=== PATIENT | female | born 1995 | race Caucasian/White ===

== ENCOUNTER 2020-08-22 12:18 | Outpatient (CLI) | payer OTHER ==
[2020-08-23 01:17] LABS: SARS-CoV-2 PCR by NAA Not Detected (NotDetected)
== END 2020-08-22 12:19 | disposition home or self-care (01) ==
LOC: CSHLAB 12:18
PROVIDERS: ATTEND Family Medicine
DX: Z20.822 Contact with and (suspected) exposure to COVID-19 (principal)
CPT/HCPCS: 87635; U0003; U0005

== ENCOUNTER 2020-08-25 05:30 | Inpatient (IN) | payer OTHER ==
[2020-08-25] MEDS ORDERED: Carboprost 250 MCG/ML AMP IM PRN (06:23)
[2020-08-25] MEDS ORDERED: Methylergonovine 0.2 MG/ML VIAL IM PRN (06:23)
[2020-08-25] MEDS ORDERED: Acetaminophen 500 MG TAB PO PRN (06:23)
[2020-08-25] MEDS ORDERED: Lactated Ringer's 1,000 ML IV SCH (06:23)
[2020-08-25] MEDS ORDERED: Butorphanol Tartrate 1 MG/ML VIAL SLOW IVP PRN (06:23)
[2020-08-25] MEDS ORDERED: Promethazine HCl 25 MG/ML VIAL IM PRN ×3 (06:23→17:59)
[2020-08-25] MEDS ORDERED: Ibuprofen 800 MG TAB PO PRN (06:23)
[2020-08-25] MEDS ORDERED: Misoprostol 200 MCG TAB PR PRN (06:23)
[2020-08-25] MEDS ORDERED: NS / Oxytocin 40 units/1000ml 1,000 ML IV PRN (06:23)
[2020-08-25] MEDS ORDERED: Ondansetron PF 4 MG/2 ML Vial IVP PRN ×3 (06:23→17:59)
[2020-08-25] MEDS ORDERED: hydrALAZINE 20 MG/ML VIAL SLOW IVP PRN ×2 (06:23→17:59)
[2020-08-25] MEDS ORDERED: Lidocaine 1% (PF) 30 ML VIAL SC PRN (06:23)
[2020-08-25] MEDS ORDERED: Diphenoxylate HCl/Atropine Tablet PO PRN (06:23)
[2020-08-25] MEDS ORDERED: NS w/ Oxytocin 30 units 500 ML ONE ×2 (07:15→14:48)
[2020-08-25 08:07] VITALS: BMI 31.7
[2020-08-25 08:19] LABS: Hemoglobin 11.9 g/dL (12.0-15.5); Mean Corpuscular HGB CONC 35.1 g/dL (32.0-36.0); Mean Corpuscular Hemoglobin 33.6 pg (27.0-33.0); Mean Corpuscular Volume 95.8 fl (81.6-98.3); Platelet Count 247 10x3/uL (150-450); RBC Distribution Width 13.3 % (11.5-14.5); Red Blood Cell (RBC) Count 3.54 10x6/uL (3.90-5.03); White Blood Cell (WBC) Count 15.6 10x3/uL (3.5-10.5)
[2020-08-25 08:39] LABS: Hep B Surf Ag Non-Reactive S/CO (NonReactive)
[2020-08-25 08:40] LABS: Syphilis Antibody Nonreactive (Nonreactive); Syphilis Antibody Index 0.03 S/CO (<1.00 Non-Reactive)
[2020-08-25 09:04] LABS: HBSAg Index 0.14 S/CO (0-0.99)
[2020-08-25] MEDS ORDERED: Fentanyl 4 mcg/Bup 0.1% Cadd 100 ML ONE (11:27)
[2020-08-25] MEDS ORDERED: Eucerin (Mineral Oil/Petrolatum,White) 30 gm Jar TOP PRN (12:01)
[2020-08-25] MEDS ORDERED: diphenhydrAMINE 50 MG/ML VIAL IVP PRN (12:01)
[2020-08-25] MEDS ORDERED: Lactated Ringer's 500 ML IV PRN (12:01)
[2020-08-25] MEDS ORDERED: Naloxone HCl 0.4 mg/ml Vial IVP PRN ×2 (12:01)
[2020-08-25] MEDS ORDERED: Acetaminophen 325 MG TAB PO PRN (12:01)
[2020-08-25] MEDS ORDERED: Communication Order-Pharmacy FS SCH (12:15)
[2020-08-25] MEDS ORDERED: Fentanyl 4 mcg/Bupivacaine 0.1% Cassette 100 ML EPIDURAL SCH (12:15)
[2020-08-25] MEDS ORDERED: ePHEDrine Sulfate 50 MG/10 ML VIAL SLOW IVP PRN (12:25)
[2020-08-25 12:55] LABS: Amphetamine Not Detected (NotDetected); Barbiturates Screen Not Detected (NotDetected); Benzodiazepine Screen Not Detected (NotDetected); Cocaine Metabolite Screen Not Detected (NotDetected); Methadone Not Detected (NotDetected); Methamphetamine Not Detected (NotDetected); Opiate Screen Not Detected (NotDetected); Oxycodone Screen Not Detected (NotDetected); Phencyclidine (PCP) Not Detected (NotDetected); THC/Cannabinoid Screen Not Detected (NotDetected); Tricyclic Screen Not Detected (NotDetected)
[2020-08-25] MEDS ORDERED: Milk Of Magnesia 30 ML UDCUP PO PRN (17:59)
[2020-08-25] MEDS ORDERED: Adacel (T-DAP) 0.5 ML SYRINGE IM ONE (17:59)
[2020-08-25] MEDS ORDERED: Preparation H Ointment 28 GM TUBE PR PRN (17:59)
[2020-08-25] MEDS ORDERED: HYDROcodone/Acetaminophen 5/325 mg Tablet PO PRN ×2 (17:59)
[2020-08-25] MEDS ORDERED: Benzocaine-Menthol 82.5 ML CAN TOP PRN (17:59)
[2020-08-25] MEDS ORDERED: Bisacodyl 10 MG SUPP PR PRN (17:59)
[2020-08-25] MEDS ORDERED: diphenhydrAMINE 25 MG CAP PO PRN (17:59)
[2020-08-25] MEDS ORDERED: NS w/ Oxytocin 30 units 500 ML IV SCH (18:30)
[2020-08-25] MEDS ORDERED: Ferrous Sulfate 325 MG TAB PO SCH (18:30)
[2020-08-25] MEDS: Docusate Calcium (SURFAK) 240 MG CAP PO SCH (22:00)
[2020-08-25] MEDS: Ibuprofen 800 MG TAB PO SCH (22:28)
[2020-08-26] MEDS: Ibuprofen 800 MG TAB PO SCH ×2 (06:05→14:37)
[2020-08-26] MEDS ORDERED: Prenatal Vitamin 1 TAB PO SCH (09:00)
[2020-08-26] MEDS: Ferrous Sulfate 325 MG TAB PO SCH ×2 (09:13→15:32)
[2020-08-26] MEDS: Docusate Calcium (SURFAK) 240 MG CAP PO SCH (09:14)
[2020-08-27] MEDS: Docusate Calcium (SURFAK) 240 MG CAP PO SCH (06:32)
[2020-08-27] MEDS: Ibuprofen 800 MG TAB PO SCH ×2 (06:32→06:33)
[2020-08-27 10:04] VITALS: BP 127/78; TEMP 98.1
== END 2020-08-27 10:15 | disposition home or self-care (01) | DRG 807 ==
LOC: CSHLD 06:11 → CSHPED 20:10
PROVIDERS: ADMIT Family Medicine; ATTEND Family Medicine
PROC: 10E0XZZ Delivery of Products of Conception, External Approach (ICD-10-PCS; principal; 2020-08-25)
PROC: 10907ZC Drainage of Amniotic Fluid, Therapeutic from Products of Conception, Via Natural or Artificial Opening (ICD-10-PCS; 2020-08-25)
PROC: 3E033VJ Introduction of Other Hormone into Peripheral Vein, Percutaneous Approach (ICD-10-PCS; 2020-08-25)
DX: O99.324 Drug use complicating childbirth (principal); Z37.0 Single live birth; Z20.822 Contact with and (suspected) exposure to COVID-19; F15.90 Other stimulant use, unspecified, uncomplicated; Z3A.39 39 weeks gestation of pregnancy
CPT/HCPCS: 51702; 80306; 85027; 86780; 86850; 86900; 86901; 87340